=== PATIENT | male | born 1955 | race Caucasian/White ===

== ENCOUNTER → 2016-09-17 | Outpatient (CLI) | payer BC ==
--- NOTE | 2016-09-17 15:35 | RADRPT ---
PROCEDURE: XR bilateral Knees. CLINICAL INDICATION: Bilateral knee pain. TECHNIQUE: 5 views of both knees are available for review. COMPARISON: None available FINDINGS: Right side: There is moderate medial joint space narrowing consistent with arthrosis. Lateral joint spaces preserved. There is moderate patellofemoral joint space narrowing with subcortical sclerosi s and minimal osteophyte formation indicative of arthrosis. There is a small joint effusion. No ev idence for fracture. Left side: Patient is status post total knee replacement. The knee replacement is in good position and alignment without evidence of migration, loosening, infection, or fracture. No bone destructive or erosive changes are seen. No acute fracture is identified. There is a small effusion. IMPRESSION: 1. Appropriate appearance of left knee replacement. 2. Moderate right medial and patellofemoral arthrosis. 3. No acute fracture or dislocation is seen. RPTAT: XX .Checo Contreras MD, MD Date Time Electronically viewed and signed by .Checo Contreras MD, on 09/17/2016 15:35 .T/
--- NOTE | 2016-09-18 06:18 | HKNOTE ---
DATE OF SERVICE: 09/17/2016 MAIN COMPLAINT: Pain in the right knee. HISTORY OF MAIN COMPLAINT: Patient is a 61-year-old male who complains of pain in the right knee, which has been present for about 10 years. He states "I had problems with both my knees all my life." Patient had a left total knee replacement, which was performed by Dr. Venancio Solano in 2010 at the [facility]. He has never been very happy with the knee replacement. He has had pain ever since. Currently, he is seeing me only for his right knee. In the past month, the right knee pain has become very much worse. He has had to cut back on his activities. He is "not able to golf any more" even using a cart. His pain in the posterior aspect of the knee in the popliteal fossa. There is no instability of the knee. However, the knee sometimes hyperextends and feels that it might give way on him. There has been some mild swelling of the knee. Pain is aggravated by walking and running and especially by going down stairs. He does get rest pain and night pain. He tried taking Celebrex (also other pain ). He has also tried Advil gel. Currently on a flat and level surface he cannot walk more than half a block at a time without stopping. He does not use a walking aid. The pain does not radiate up or down his leg. He does limp all the time. He does not have a shoe lift. He can clip his toenails and tie his shoelaces. SPORTING ACTIVITIES: Golf (no longer). PAST ORTHOPEDIC HISTORY: Left knee replaced in 2010. PRIOR CORTISONE INTAKE: The patient has had cortisone "twice a year in the last 2 years." ALCOHOL INTAKE: Two alcoholic beverages a day. BLOOD TESTS FOR ARTHRITIS: Yes. He was thought to have rheumatoid arthritis. 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 PAST MEDICAL HISTORY: Medicines for hypertension. PAST SURGICAL HISTORY: Lift knee replacement. DRUG ALLERGIES: None. MEDICATIONS: 1. Spironolactone 100. 2. Valsartan. 3. Amlodipine. 4. Celebrex. 5. Atorvastatin. FAMILY HISTORY: Noncontributory. SYSTEMS REVIEW: High blood pressure. Otherwise, entirely negative. PHYSICAL EXAMINATION: GENERAL: Patient is a very fit-looking, youthful 61-year-old male. VITAL SIGNS: Height 5 foot 9. Weight 195 pounds. Blood pressure 140/75, temperature 98.2. GAIT: Patient has a fairly marked antalgic gait. He is not using a walking aid. HIPS: Both hips have a full range of motion without pain. KNEES: Examination of the right knee: Alignment is normal. Extension lacks 2 or 3 degrees. Flexion is full without pain. All collateral ligaments and cruciate ligaments are intact. 3+ effusion. 1+ crepitus in the knee. Examination of the left knee: A scar from previous total knee replacement. Full mobile reaction. IMAGING: Plain x-rays of the right knee obtained at the [facility] show mild narrowing of the medial joint space. Otherwise, the knee is completely normal radiologically in appearance. DISCUSSION: A 61-year-old male, who has had pain "all my life" in his right knee. The pain has become particularly more severe of late. His pain has become progressively gotten worse and he has given up his favorite sporting activities. Imaging of his knee does not account for the degree of pain that he has and the severity of his limp. MANAGEMENT: The patient is being referred for an MRI scan of the knee. He will be called with the results. Dictated By: Juan Ellington MD /angel/carmen /Document#: [id number]
== END | disposition home or self-care (01) ==
LOC: HKI 14:29
DX: M25.561 Pain in right knee (principal); Z96.652 Presence of left artificial knee joint
CPT/HCPCS: 20610; 73562; G0463

== ENCOUNTER → 2016-10-06 | Outpatient (CLI) | payer BC ==
--- NOTE | 2016-10-27 20:46 | HKNOTE ---
DATE OF SERVICE: 10/06/2016 MAIN COMPLAINT: Pain in the right knee. HISTORY OF MAIN COMPLAINT: The patient comes to the MRI scan for review of the MRI obtained on 09/24/[address] Orion Chauhan as showing radially oriented tear along the free edge of the posterior lateral meniscus with an accompanying flap tear component extending through the mid zone. Tearing of the posterior root medial meniscus. There are mild tricompartmental degenerative changes. The patient continues to have continues to have symptoms in the knee. I had a long discussed with this patient concerning whether or not he needs an arthroscopic operation on the knee. His knee symptoms appear to be significant enough and fit in with the findings on the MRI. After a long discussion, patient decided that he would like to proceed with an arthroscopic operation of the knee. The procedures and the major postop complications were discussed with him in a fair amount of detail. Postoperative course was discussed with him. Surgery will be scheduled to be performed in the near future. Note that we spent considerable time discussing knee replacement versus operative arthroscopy. Dictated By: Juan Ellington MD /angel/gilberto /Document#: [id number]
== END | disposition home or self-care (01) ==
LOC: HKI 13:36
DX: M25.561 Pain in right knee (principal)